=== PATIENT | female | born 1975 | race Caucasian/White ===

== ENCOUNTER 2018-10-10 06:29 | Day surgery (SDC) | payer MEDICAID, OTHER ==
[2018-10-10] VITALS (20 sets, daily range): BP systolic 119–150; BP diastolic 65–101; PULSE 64–82; RESP 10–38; Ht 154.9 cm; Wt 82.5 kg
[~2018-10-10] VITALS: Ht 154.9 cm; Wt 82.5 kg
[2018-10-10] MEDS ORDERED: CEFAZOLIN 2 GM/50 ML (PMX) 50 ML IVPB ONE (07:00)
[2018-10-10] MEDS ORDERED: SOD CHLORIDE 0.9% 1,000 ML IV SCH (07:00)
[2018-10-10] MEDS ORDERED: SEVOFLURANE 15 MIN ONE (07:00)
--- NOTE | 2018-10-10 08:45 | PREAC ---
Date/Time of Note Date/Time of Note DATE: 10/10/18 TIME: 08:44 Anesthesia Eval and Record Evaluation Time Pre-Procedure Interview DATE: 10/10/18 TIME: 08:44 Age 43 Sex female NPO: 8 hrs Preoperative diagnosis Multiple Scalp masses Planned procedure Excision of scalp masses Past Medical History Past Medical History: None Surgery & Anesthesia Issues No known issue Meds Anticoagulation: No Beta Adam within 24 hr: No Reason Beta Adam not given: Pt. not on B-Adam Current Medications Sodium Chloride 1,000 ml @ 75 mls/hr [id number] IV ; Start 10/10/18 at 07:00 Meds reviewed: Yes Allergies Coded Allergies: No Known Allergy (Unverified , 10/09/18) Allergies Reviewed: Yes Labs/Studies Labs Reviewed: Reviewed by anesthesiologist test: Negative Studies: ECG Pre-procedure Exam Last vitals Vital Signs Date Temp Pulse Resp B/P (MAP) Pulse Ox O2 O2 Flow FiO2 Time Delivery Rate 10/10/18 97.0 70 16 132/87 99 Room Air 07:34 (102) Airway: Adequate mouth opening, Adequate thyromental dist Mallampati: Mallampati II Teeth: Normal Lung: Normal Heart: Normal ASA Physical Status ASA physical status: 2 Emergency: None Planned Anesthetic General/MAC: LMA Planned Pain Management Parenteral pain med Pre-operative Attestations Prior to commencing anesthesia and surgery, the patient was re-evaluated, there was verification of: *The patient's identity *The results of appropriate recent lab work and preoperative vital signs *The above evaluation not changing prior to induction *Anesthetic plan, risk benefits, alternative and complications discussed with patient/family; questions answered; patient/family understands, accepts and wishes to proceed. MITCHELL COPE MD Oct 10, 2018 08:45
[2018-10-10] MEDS ORDERED: MIDAZOLAM 1 MG/ML 2 ML INJ ONE (08:49)
[2018-10-10] MEDS ORDERED: FENTAnyl 50 MCG/ML VIAL ONE ×2 (08:49→09:26)
[2018-10-10] MEDS ORDERED: BUPIVACAINE 0.25% (MPF) 30 ML INJ ONE (08:57)
[2018-10-10] MEDS ORDERED: BACITRACIN/POLYMYXIN 28.35 GM OINT TOP ONE (09:16)
[2018-10-10] MEDS ORDERED: PROPOFOL 20 ML ONE (09:40)
[2018-10-10] MEDS ORDERED: CEFAZOLIN 1 GM INJ ONE (09:40)
[2018-10-10] MEDS ORDERED: ONDANSETRON 4 MG INJ ONE (09:40)
[2018-10-10] MEDS ORDERED: LIDOCAINE 2% (SDV) 5 ML INJ ONE (09:40)
--- NOTE | 2018-10-10 09:52 | OPR ---
Date/Time of Note Date/Time of Note DATE: 10/10/18 TIME: 09:47 Operative Report Procedure Date: Oct 10, 2018 Preoperative Diagnosis scalp mass x 3 Postoperative Diagnosis same Operation/Procedure Performed 1. excision of left scalp mass 5 cm mass 5 cm incision 2. localized adjacent tissue transfer with the use of skin flaps of left scalp 10 sq cm defect 3. excisino of left posterior scalp mass 3 cm mass 3 cm incision 4. localized adjacent tissue transfer with the use of skin flaps 6 sq cm defect posterior scalp 5. excision of right posterior scalp mass 3 cm mass 3 cm incision 6. localized adjacent tissue transfer with the use of skin flaps 6 sq cm defect posterior scalp 7. therapeutic injection of subcutaneous local anesthesia Surgeon see signature line [employer]er none Anesthesia Type: general Estimated Blood Loss: 10 - 50 ml's Transfusion none Specimen left scalp mass left posterior scalp mass right posterior scalp mass Grafts/Implants none Complications none Pt Condition Post Procedure: stable Indications This is a 43-year-old female with multiple scalp masses. She required surgical excision of the scalp masses. Risks alternatives benefits and percent were d iscussed the patient. Potential complications including but not limited to bleeding infection wound dehiscence and in particular scar alopecia was discussed the patient. Patient expressed understanding and consents to the operation. Procedure Description Patient taken to the OR and prepped and draped in usual sterile fashion. Surgical time was performed. IV antibiotics were given. Elliptical incision was made over the left scalp mass. Dissection with cautery carried onto the mass and circumferentially excised. Good hemostasis status. Due to tissue defect localized adjacent to his transfer with use of skin flaps was performed. Multilayer closure with interrupted 3-0 Vicryl running 4-0 Monocryl. Therapeutic contains local anesthesia was injected at the incision site. Attention was then paid to the left posterior scalp mass. Elliptical incision was made over the left posterior scalp mass and this was excised using cautery. Good hemostasis established. Due to tissue defect localization to transfer with use of skin flaps were performed. Multilayer closure with interrupted 2-0 Vicryl and running 4-0 Monocryl. Attention was then paid to the right posterior scalp mass. Elliptical incision was made with a 15 blade. Dissection with cautery was carried onto the mass and circumferentially excised. Good hemostasis status. Due to tissue defect localization to transfer with these of skin flaps were performed. Closure was made with interrupted 2-0 subcuticular Vicryls. Therapeutic contains local anesthesia injected at the incision site. Hemostasis was maintained. Antibiotic ointment and dry dressings were applied. Ava HAMILTON Oct 10, 2018 09:52
--- NOTE | 2018-10-10 09:56 | PAC ---
Date/Time of Note Date/Time of Note DATE: 10/10/18 TIME: 09:55 Post-Anesthesia Notes Post-Anesthesia Note Last documented vital signs Vital Signs Date Temp Pulse Resp B/P (MAP) Pulse Ox O2 O2 Flow FiO2 Time Delivery Rate 10/10/18 97.0 70 16 132/87 99 Room Air 07:34 (102) Activity: WNL Respiratory function: WNL Cardiovascular function: WNL Mental status: Baseline Pain reasonably controlled: Yes Hydration appropriate: Yes Nausea/Vomiting absent: Yes Comments BP:112/56, P:78, Spo2:100%, T:98,8 MITCHELL COPE MD Oct 10, 2018 09:56
[2018-10-10] MEDS ORDERED: MEPERIDINE 25 MG INJ IV PRN (10:00)
[2018-10-10] MEDS ORDERED: DIPHENHYDRAMINE 50 MG INJ IV PRN (10:00)
[2018-10-10] MEDS ORDERED: METOCLOPRAMIDE 10 MG INJ IV PRN (10:00)
[2018-10-10] MEDS ORDERED: HYDROCODONE/APAP (5/325) TAB PO ONE (10:00)
[2018-10-10] MEDS ORDERED: HYDROmorphONE 1 MG/5 ML IV SYRINGE IV PRN (10:00)
[2018-10-10] MEDS: ONDANSETRON 4 MG INJ IV PRN ×2 (10:06→11:37)
[2018-10-10] MEDS: HYDROmorphONE 1 MG/5 ML IV SYRINGE IV PRN ×2 (10:11→10:17)
[2018-10-10] MEDS: FENTAnyl 50 MCG/ML VIAL IV PRN ×4 (10:39→11:08)
== END 2018-10-10 12:30 | disposition home or self-care (01) ==
LOC: SDS 06:29
PROVIDERS: ATTEND Surgery
DX: L72.11 Pilar cyst (principal)
CPT/HCPCS: 14021; 80053; 85025; 85610; 85730; 88307; J0690; J1170; J2175; J2250; J2405; J3010; Z7512; Z7610